=== PATIENT | male | born 1955 | race Caucasian/White ===

== ENCOUNTER 2017-02-12 22:41 | Inpatient (IN) ==
--- NOTE | 2017-02-13 00:07 | Emergency Department Note ---
Disposition Clinical Impression: Weakness, Confusion and disorientation Pneumonia Qualifiers: Pneumonia type: due to unspecified organism Laterality: unspecified laterality Lung location: unspecified part of lung Qualified Code(s): J18.9 - Pneumonia, unspecified organism Disposition: Admitted As Inpatient Condition: Good Time of Disposition: 00:43 General Adult HPI - General Chief complaint: ED Syncope Stated complaint: dizzy/PN Time Seen by Provider: 02/12/17 23:10 Source: patient, family, EMS Limitations: no limitations Nursing Notes Reviewed: Yes Vital Signs Reviewed: Yes - History of Present Illness HPI Narrative: 61-year-old male with a history of previous stroke no report sequela presents from [facility] for weakness and confusion. States earlier today he felt lightheaded and weak on his right side. His [facility] The daughter was concern he also appeared more confused than usual. Believe it may have been from his recent diagnosis of pneumonia. States they been unable to understand his speech for the past several days. He was seen yesterday and diagnosed with pneumonia placed on doxycycline. He has had a cold and cough for over a month sputum production. He has a significant history of cocaine and marijuana use. He is also chronic alcoholic. Concern for stroke, CT of the head was performed that did not reveal any acute intracranial hemorrhage. MRI was recommended for further evaluation. Pain Scale: 9 - Related Data Allergies Allergy/AdvReac Type Severity Reaction Status Date / Time No Known Allergies Allergy Verified 02/12/17 22:42 All systems ED: reviewed and negative except as stated. Review of Systems: As Per HPI Constitutional: Reports: fever. Denies: chills ENT ED: Reports: congestion. Denies: dysphagia Cardiovascular: Denies: chest pain Respiratory: Reports: cough, dyspnea Gastrointestinal: Denies: abdominal pain, nausea, vomiting Genitourinary: Denies: urgency, dysuria Musculoskeletal: Denies: back pain, neck pain Integumentary: Denies: rash, abrasion Neurological: Reports: weakness. Denies: headache Psychiatric: Denies: anxiety, depression Endocrine: Reports: fatigue Past Medical History - Past Medical History Medical history: Reports: cancer, COPD, diabetes, seizures Psychiatric history: Reports: schizophrenia - Social History Smoking Status: Former smoker Alcohol use: Reports: heavy Drug use: Reports: marijuana Physical Exam - General Limitations: no limitations General appearance: alert, in no apparent distress - Head Head exam: atraumatic, normocephalic - Eye Eye exam: Present: normal appearance, PERRL, EOMI. Absent: nystagmus - ENT ENT exam: normal exam, normal oropharynx, mucous membranes moist - Neck Neck exam: Present: normal inspection, full ROM, trachea midline. Absent: tenderness - Chest Chest inspection: Present: normal inspection, symmetric chest wall rise - Respiratory Respiratory exam: Absent: respiratory distress, accessory muscle use - Expanded Respiratory Exam Location: rales: Right - Cardiovascular Cardiovascular exam: Present: regular rate, normal rhythm, normal heart sounds. Absent: systolic murmur, diastolic murmur - Abdominal Exam Abdominal exam: Present: soft, Non-Tender, normal bowel sounds. Absent: tenderness, distention, guarding, rebound, rigidity, Pacheco's sign, Rovsing's sign - Extremities Exam Extremities exam: Present: normal inspection - Expanded Upper Extremity Exam Shoulder exam: Present: normal inspection, full ROM Arm exam: Present: normal inspection, full ROM Elbow exam: Present: normal inspection, full ROM Forearm/Wrist exam: Present: normal inspection, full ROM Hand exam: Present: normal inspection, full ROM Vascular exam: Normal: capillary refill, radial pulse - Back Exam Back exam: Present: normal inspection, full ROM. Absent: tenderness, vertebral tenderness - Neurological Exam Neurological exam: Present: alert - Expanded Neurological Exam Patient oriented to: Present: person, place Speech: Present: fluid speech Cranial nerves: EOM function (II, III, IV, ): Normal, facial sensation (V): Normal, facial palsy (VII): Normal, gag reflex (IX): Normal, spinal accessory function (XI): Normal, tongue deviation (XII): Normal Motor strength - LUE: 5/5 Motor strength - RUE: 5/5 Motor strength - LLE: 4/5 Motor strength - RLE: 5/5 Sensory exam upper extremity: light touch: Normal Sensory exam lower extremity: light touch: Normal - Skin Skin exam: Present: warm, dry, intact, normal color. Absent: rash Course Course Narrative: 61-year-old male presents as a transfer from the [facility] for concern of stroke in confusion. Patient has generalize weakness in this was noticed by her daughter over the past several days. Concern for possible stroke and further evaluation with neurology he was transferred here. On exam patient is awake alert and oriented to person place. He is not have any focal neural deficits his left leg appears low weaker. Sensation is intact. He was also recently diagnosed with pneumonia. Concern that this may be contributing to his increased weakness. He was afebrile here. CT of the head was performed and negative for acute hemorrhage. Will admit to hospital is for further evaluation and MRI imaging. Patient and family are in agreement with plan. Impression is confusion, disorientation, weakness, pneumonia - Consultations Consultation #1: Spoke with on-call hospitalist malini Sosa to admit for confusion, weakness, chronic alcoholism. No further orders at this time. Patient will be admitted for further evaluation with neurology consultation and MRI imaging. Vital Signs Temperature 97.9 F 02/12/17 22:44 Pulse Rate 101 02/12/17 22:44 Respiratory Rate 20 02/12/17 22:44 Blood Pressure 122/76 02/12/17 22:44 O2 Sat by Pulse Oximetry 99 02/12/17 22:44 Temperature 97.8 F 02/13/17 04:03 Pulse Rate 96 02/13/17 04:03 Respiratory Rate 16 02/13/17 04:03 Blood Pressure 106/71 02/13/17 04:03 O2 Sat by Pulse Oximetry 95 02/13/17 04:03 Oxygen Delivery Oxygen Delivery Room Air Medical Decision Making - MDM Narrative Medical decision making narrative: Patient was discussed with my attending physician who agrees with ED management and final disposition. They independently evaluated the patient. Please refer to their attestation to this encounter for additional information. This note was generated by [employer] voice recognition software and as a result grammatical or spelling errors may occur using this program. - Medical Records Medical records reviewed: Yes I reviewed the patient's medical records. - Lab Data Lab results reviewed: Yes I reviewed the patient's lab results. Lab results narrative: Laboratory results performed at the [facility], WBC 8, hemoglobin 10.5, electrolytes are within normal limits, creatinine 1.11, ammonia less than 10 - Radiology Data Radiology results reviewed: Yes I reviewed the patient's radiology results. CT of head performed at [facility], no acute intracranial hemorrhage. MRI-based diffusion imaging recommended. Attestation Statement - Attestation Attestation: I, Mauro Culp MD, personally evaluated this patient and discussed their management with the resident physician. I reviewed the resident's note and agree with the documented findings, medical decision making, and plan of care. 61-year-old [facility]. Patient states he was seen at the [facility] for cough and congestion and was seen again yesterday. He was diagnosed with pneumonia yesterday and started on antibiotics. He reports he went back today because he was not getting any better and felt like he was getting worse. He complains of generalized malaise and body aches. Generalized weakness. Frequent falls and dropping things due to his weakness. Family felt he was more confused than usual today. He lives by himself but does live next door to her daughter. He was seen and worked up at the [facility] urgent care including a CT of the head which was negative. They were concerned about the change in his mental status and felt he needed a neurology consultation and an MRI of the brain. On examination patient is a well-developed well-nourished male in no acute distress. He is alert and oriented 3. There is no cyanosis or diaphoresis. His speech is slow and he is a little slow to respond but speech is not slurred. There is no focal neurological deficits noted. He has good water operator strength bilaterally. Neck is supple and nontender with full range of motion. Breath sounds are resume with some coarse bilateral rales. Heart regular rate and rhythm. Abdomen is soft and nontender with normal bowel sounds. There is 1 + pitting edema of the lower extremities bilaterally. The hospitalist, Dr. Bhatti, was consulted and accepted admission of the patient.
[2017-02-13] MEDS ORDERED: Naloxone 0.4 MG/ML INJ IVP PRN (01:02)
[2017-02-13] MEDS ORDERED: *HR* Morphine 2 MG/ML SYRINGE IVP PRN (01:02)
[2017-02-13] MEDS ORDERED: Ondansetron 4 MG/2 ML VIAL IVP PRN (01:02)
[2017-02-13] MEDS: 0.9 % Sodium Chloride 1,000 ML IVC SCH ×2 (02:11→23:50)
[2017-02-13] MEDS: Thiamine (B-1) 100 MG in D5% in Water 50 ML IVPB SCH ×2 (02:11→08:40)
[2017-02-13] MEDS ORDERED: *HR* Dextrose 50 % in Water (Syg) 50 ML SYRINGE IVP PRN (04:23)
[2017-02-13] MEDS ORDERED: Dextrose Gel 15 GM PO PRN ×2 (04:23)
[2017-02-13] MEDS ORDERED: D5% in Water 1,000 ML IVC PRN (04:23)
[2017-02-13] MEDS ORDERED: Aspirin 325 MG TABLET PO ONE (04:38)
--- NOTE | 2017-02-13 04:49 | Internal Med History&Physical ---
Date of Encounter: 02/13/17 Time of Encounter: 04:30 Assessment and Plan (1) Acute encephalopathy Current visit: Yes Status: Acute Acute encephalopathy with generalized weakness - probably due to poor PO intake , rule out acute CVA - possible underlying dementia - patient currently seems to be back to baseline mental status Continue aspirin, statin CT head done at the [facility] - negative for any acute intracranial abnormality MRI brain - pending Echocardiogram - pending Carotid Doppler - pending Troponin - 0.00 Cardiac telemetry, labs in a.m., monitor closely (2) Alcohol abuse Current visit: Yes Status: Acute History of chronic alcohol abuse - patient states he drinks about 6 pack of beer daily IV thiamine, folic acid, multivitamin tablet, monitor for withdrawal Counseled about cessation (3) DVT prophylaxis Current visit: Yes Status: Acute Heparin subcutaneous Internal Medicine - H&P: HPI Chief complaint: Altered mental status Admitted From: Emergency Dept Plans for Post Hospital Care: Home History of present illness: Mr. Iraheta is a 61 year old male with past medical history of COPD, diabetes, seizures, schizophrenia, CVA, probable dementia, alcohol abuse and cancer. Patient presents to the ED for altered mental status and right-sided weakness. Examined in the room. Patient is awake and alert. Able to answer some questions. Overall a poor historian. No family members at bedside. Most of the history is obtained from ER documentation. Patient was initially taken to the [facility] and was then transferred here. The patient was recently discharged after being treated for pneumonia. He has been on doxycycline as an outpatient. Family has stated that patient's speech has been difficult on the shower the past several days. And his confusion has also been worsening slightly. According to records patient has a history of chronic marijuana use and cocaine use. Also has a history of alcohol abuse. Patient denies chest pain or shortness of breath. Denies palpitations or abdominal pain or vomiting or diarrhea. He is awake and alert and oriented to place and person but not to time. No other acute complaints. No other associated symptoms. No obvious focal neurological deficits. Initial workup in the ED is negative. CT scan of the head without contrast is negative for any acute intracranial abnormality. MRI brain is pending. Patient will be on aspirin and statin. We will also obtain echocardiogram and carotid Doppler. Patient has been excellent about his condition plan of care. He understood and agreed. No unanswered questions. CODE STATUS full code. Past Med Surg Social Fam HX - Past Medical History Medical history: cancer, COPD, diabetes, seizures Psychiatric history: schizophrenia - Past Surgical History Surgical History: other (History of gastric cancer, partial gastrectomy) - Social History Smoking Status: Former smoker Alcohol use: heavy Drug use: marijuana - Family History Mother Living Status: Hx Family Cancer: Yes (Unknown) Father Living Status: Cause of : Cancer Hx Family Cancer: Yes (Unknown) Internal Medicine - H&P: Meds 3 Allergy/AdvReac Type Severity Reaction Status Date / Time No Known Allergies Allergy Verified 02/12/17 22:42 All Systems PM: A 10-system review of systems was performed and is negative for pertinent findings except as documented above in the HPI. - Constitutional Constitutional: fatigue, weakness, no fever(s) - EENT Eyes: no blurry vision - Cardiovascular Cardiovascular ROS IM: no chest pain, no dyspnea, no dyspnea on exertion, no edema, no orthopnea, no palpitations, no syncope - Respiratory Respiratory: no cough, no dyspnea, no dyspnea on exertion, no wheezing, no chest congestion - Gastrointestinal Gastrointestinal: no abdominal pain, no cramping, no diarrhea, no nausea, no vomiting - Genitourinary Genitourinary ROS male: no dysuria - Neurological Neurological ROS: abnormal speech, confusion, frequent falls, numbness, tingling , no dizziness, no focal weakness, no loss of vision - Constitutional Vitals: Temp Pulse Resp BP Pulse Ox 97.8 F 96 16 106/71 95 02/13/17 04:03 02/13/17 04:03 02/13/17 04:03 02/13/17 04:03 02/13/17 04:03 General appearance: Present: cooperative, disheveled, A&O X 2, pleasant, no acute distress, answers questions appropriately Exam: Chronically ill-appearing, generalized weakness. - Head Head exam: Present: atraumatic - Eye Eye exam: Present: EOMI - ENT ENT exam: Present: mucous membranes dry - Respiratory Respiratory exam: Present: CTAB. Absent: rales, rhonchi, wheezes, tachypnea - Cardiovascular Cardiovascular exam: Present: RRR, +S1, +S2 - GI/Abdominal GI/Abdominal exam: Present: soft. Absent: distended, firm, guarding, tenderness - Extremities Exam Extremities exam: Present: radial pulses palpable and symmetrical. Absent: calf tenderness, cyanotic, pedal edema - Neurological Exam Neurological exam: Present: alert, CN II-XII intact, no focal deficits. Absent : facial droop, speech deficit Additional comments: Jose alert. Oriented to place and person but not to time. No focal neurological deficits. Patient is mostly bedbound and wheelchair-bound. No obvious deficits otherwise. Internal Med - H&P Results - Labs CBC & Chem 7: 02/13/17 05:17 02/13/17 05:17
[2017-02-13 05:37] LABS: Basophils % 0.6 %; Eosinophils # 0.1 K/mcL (0.0-0.6); Eosinophils % 1.6 %; Hematocrit 28.5 % (37.5-50.1); Hemoglobin 9.6 g/dL (12.9-16.9); Immature Granulocytes % 0.5 % (0-4); Lymphocytes # 1.7 K/mcL (0.6-4.6); Lymphocytes % 25.7 %; Mean Corpuscular HGB Conc 33.7 g/dL (31.6-35.5); Mean Corpuscular Hemoglobin 30.6 pg (28.0-33.3); Mean Corpuscular Volume 90.8 fL (83.0-100.0); Mean Platelet Volume 8.9 fL (9.4-12.4); Monocytes # 0.7 K/mcL (0.0-1.3); Monocytes % 10.1 %; Neutrophils # 3.9 K/mcL (1.6-8.9); Platelet Count 288 K/mcL (140-400); Red Blood Count 3.14 M/mcL (4.19-5.50); Red Cell Distribution Width 12.8 % (11.5-14.5); Segmented Neutrophils % 61.5 %
[2017-02-13 05:41] LABS: INR 1.2; Prothrombin Time 12.6 Seconds (9.4-12.1)
[2017-02-13 05:54] LABS: BUN/Creatinine Ratio 13 (6-26); Blood Urea Nitrogen 13 mg/dL (8-26); Calcium 8.9 mg/dL (8.6-10.8); Carbon Dioxide 25 mEq/L (19-29); Chloride 103 mEq/L (98-109); Chol/HDL Ratio 3.8 (0-4.9); Cholesterol 121 mg/dL (< 200); Glucose 101 mg/dL (70-99); HDL Cholesterol 32 mg/dL (40-59); LDL Cholesterol,Calculated 71 mg/dL (0-99); Magnesium 1.8 mg/dL (1.6-2.6); Osmolality,Calculated 282 (280-300); Potassium 3.8 mEq/L (3.5-4.5); Sodium 136 mEq/L (136-145); Triglycerides 91 mg/dL (< 150); eGFR For African Americans > 60 (> 60); eGFR For Non-African Americans > 60 (> 60)
[2017-02-13] MEDS: *HR* Heparin 5,000 UNIT/ML VIAL SQ SCH ×2 (06:39→17:10)
[2017-02-13] MEDS: Insulin LISPRO 300 UNITS/3 ML VIAL SQ SCH ×4 (08:38→21:03)
[2017-02-13] MEDS: Folic Acid 1 MG TABLET PO SCH (08:48)
[2017-02-13] MEDS: Aspirin 81 MG TAB.CHEW PO SCH (08:48)
[2017-02-13] MEDS: Multivit/Ca/Min/Fe/FA 1 TAB TABLET PO SCH (08:48)
[2017-02-13 09:14] LABS: Bilirubin,Urine Negative (Negative); Blood,Urine Negative (Negative); Clarity,Urine Clear (Clear); Color,Urine Yellow (Yellow); Glucose,Urine (UA) Normal (Normal); Ketones,Urine 15 mg/dL (Negative); Leukocyte Esterase,Urine Negative (Negative); Nitrite,Urine Negative (Negative); Protein,Urine Negative (Neg-Trace); Specific Gravity,Urine 1.009 (1.010-1.025); Urobilinogen,Urine Normal (Normal)
--- NOTE | 2017-02-13 16:41 | Event Note ---
Date of Encounter: 02/13/17 Time of Encounter: 16:25 1. Metabolic encephalopathy: Transferred from [facility] for weakness and confusion. Mentation appears to be back to baseline, alert and oriented on my exam. Neurologically intact, no deficits apparent[facility] non-acute. History CVA. Need to rule out CVA. Brain MRI, carotid Dopplers, UDS, ammonia level pending. Continue ASA, statin. 2. Alcohol abuse: Drinks 6 pack of beer daily. Monitor for withdrawal with CIWA. IV thiamine, folic acid, multivitamin 3. Pneumonia: With reported pneumonia at [facility]. [facility] records reviewed and no evidence of pneumonia found. No WBC, afebrile. Repeat chest x-ray. 4. Diabetes: Per history. Holding home oral hypoglycemics. SSI. Monitor blood sugar and titrate PRN
[2017-02-13 16:59] LABS: Amphetamine Screen,Urine Negative ng/mL (Cutoff=1000); Barbiturate Screen,Urine Positive ng/mL (Cutoff=200); Benzodiazepines Screen,Urine Negative ng/mL (Cutoff=200); Cannabinoid Screen,Urine Negative ng/mL (Cutoff = 50); Cocaine Screen,Urine Negative ng/mL (Cutoff= 300); Opiate Screen,Urine Negative ng/mL (Cutoff=300); Phencyclidine Screen,Urine Negative ng/mL (Cutoff=25)
[2017-02-13] MEDS: Primidone 50 MG TABLET PO SCH (21:06)
[2017-02-13] MEDS: Valproic Acid 250 MG CAPSULE PO SCH (21:06)
[2017-02-14 04:33] LABS: Hematocrit 28.9 % (37.5-50.1); Hemoglobin 9.9 g/dL (12.9-16.9); Mean Corpuscular HGB Conc 34.3 g/dL (31.6-35.5); Mean Corpuscular Hemoglobin 30.7 pg (28.0-33.3); Mean Corpuscular Volume 89.5 fL (83.0-100.0); Platelet Count 285 K/mcL (140-400); Red Blood Count 3.23 M/mcL (4.19-5.50); Red Cell Distribution Width 12.6 % (11.5-14.5)
[2017-02-14 04:50] LABS: BUN/Creatinine Ratio 9 (6-26); Blood Urea Nitrogen 9 mg/dL (8-26); Carbon Dioxide 24 mEq/L (19-29); Chloride 104 mEq/L (98-109); Glucose 140 mg/dL (70-99); Osmolality,Calculated 281 (280-300); Potassium 4.2 mEq/L (3.5-4.5); Sodium 135 mEq/L (136-145); eGFR For African Americans > 60 (> 60); eGFR For Non-African Americans > 60 (> 60)
[2017-02-14] MEDS: *HR* Heparin 5,000 UNIT/ML VIAL SQ SCH ×2 (05:36→17:20)
[2017-02-14] MEDS: Valproic Acid 250 MG CAPSULE PO SCH ×2 (10:18→20:31)
[2017-02-14] MEDS: Thiamine (B-1) 100 MG in D5% in Water 100 ML IVPB SCH (10:18)
[2017-02-14] MEDS: Insulin LISPRO 300 UNITS/3 ML VIAL SQ SCH ×4 (10:34→20:36)
[2017-02-14] MEDS: Primidone 50 MG TABLET PO SCH ×3 (11:22→20:31)
[2017-02-14] MEDS: Folic Acid 1 MG TABLET PO SCH (11:22)
[2017-02-14] MEDS: Multivit/Ca/Min/Fe/FA 1 TAB TABLET PO SCH (11:23)
[2017-02-14] MEDS: Aspirin 81 MG TAB.CHEW PO SCH (11:23)
--- NOTE | 2017-02-14 11:45 | Internal Med Progress Note ---
Date of Encounter: 02/14/17 Time of Encounter: 11:42 - Assessment and plan (1) Acute encephalopathy Current Visit: Yes Status: Acute Assessment and plan: Today is my first day I am evaluating this patient. When I reviewed chart it appears that patient was confused on arrival. Today patient appears to be alert and oriented 3. Patient has a tongue rolling movements. Patient on service appropriately to questions. Acute encephalopathy getting resolved. The workup for acute encephalopathy is ongoing. Plan: We will complete the workup for acute encephalopathy as ordered by the admitting team. We will follow the recommendations coming from the workup. Depending on that we will involve further specialties. (2) Alcohol abuse Current Visit: Yes Status: Acute Assessment and plan: Patient used to drink 6-8 beers every day previously Patient claims that he does not drink anymore. We will follow [facility] protocol. (3) Weakness Current Visit: Yes Status: Acute Assessment and plan: Patient claims that his weakness has improved a lot. We will keep monitoring. We will get opinion from physical therapy/occupational therapy. (4) Pneumonia Current Visit: Yes Status: Acute Assessment and plan: X-ray chest done this morning. No evidence of pneumonia. Clinically there is no evidence of pneumonia Qualifiers: Pneumonia type: due to unspecified organism Laterality: unspecified laterality Lung location: unspecified part of lung Qualified Code(s): J18.9 - Pneumonia, unspecified organism (5) DVT prophylaxis Current Visit: Yes Status: Acute Assessment and plan: Heparin - Subjective Interval history: Patient seen and examined. Chart reviewed. Patient is comfortably sitting up in a chair. Patient denies any shortness of breath, chest pain, nausea, vomiting, abdominal pain, dizziness or diarrhea. Patient is alert and oriented 3. - Constitutional Vitals: Temp Pulse Resp BP Pulse Ox 98.1 F 74 16 109/75 95 02/14/17 07:51 02/14/17 07:51 02/14/17 07:51 02/14/17 07:51 02/14/17 07:51 General appearance: Present: cooperative, disheveled, A&O X 2, pleasant, no acute distress, answers questions appropriately - Head Head exam: Present: atraumatic, normocephalic Additional comments: Recurrent tongue rolling movements. - Eye Eye exam: Present: PERRL, conjuntiva pink, sclera anicteric Pupils: Present: PERRL - Neck Neck exam general surgery: Present: supple, trachea midline. Absent: lymphadenopathy - Respiratory Respiratory exam: Present: CTAB. Absent: accessory muscle use, rales, rhonchi, wheezes - Cardiovascular Cardiovascular exam: Present: RRR, +S1, +S2. Absent: diastolic murmur, gallop, rubs, systolic murmur - GI/Abdominal GI/Abdominal exam: Present: normal bowel sounds, soft, no peritoneal signs. Absent: distended, tenderness - Extremities Exam Extremities exam: Present: warm, radial pulses palpable and symmetrical. Absent : calf tenderness, cyanotic, pedal edema - Neurological Exam Neurological exam: Present: CN II-XII intact, oriented X3, no focal deficits. Absent: pronater drift, facial droop, speech deficit - Skin Skin exam: Present: dry, intact Internal Medicine: Result - Labs CBC & Chem 7: 02/14/17 04:03 02/14/17 04:03 Labs: Short CBC 02/14/17 Range/Units 04:03 WBC 5.0 (4.3-11.1) K/mcL Hgb 9.9 L (12.9-16.9) g/dL Hct 28.9 L (37.5-50.1) % Plt Count 285 (140-400) K/mcL BMP 02/14/17 04:03 Sodium 135 L Potassium 4.2 Chloride 104 Carbon Dioxide 24 BUN 9 Creatinine 0.97 Glucose 140 H Calcium 9.0 - ABG Interpretation ABG results: PT/INR, D-dimer PT 12.6 Seconds (9.4-12.1) H 02/13/17 05:17 - Impressions Impressions Echocardiogram 02/13/17 04:38 Impressions: LVEF 60-65%. Mild left ventricular diastolic dysfunction. No significant valvular dysfunction. No PFO by color Doppler Recommend elective SHIRAZ to provide improved diagnostic sensitivity for detection of cardiac embolic source Left Ventricular Wall Motion: Rest Echo Findings All wall segments showed normal motion. Findings: Study Quality * Technically adequate exam. Right Ventricle * Normal right ventricular structure and function. Right Atrium * Normal right atrial size. Aortic Valve * Trileaflet aortic valve with normal function. Mitral Valve * Normal mitral valve structure and function. Interatrial Septum * No evidence of PFO by color Doppler. * Lipomatous interatrial septum. Aorta * Normally sized aortic root. Pericardium * The pericardium appears normal. ECG Findings * Normal sinus rhythm. Tricuspid Valve * No tricuspid stenosis. * No tricuspid regurgitation. * Unable to estimate RVSP due to lack of TR jet. IVC * Normal IVC dimensions and inspiratory collapse. Left Atrium * Mildly dilated left atrium. Left Ventricle * LVEF 60-65%. * Mild left ventricular diastolic dysfunction. Chest X-Ray 02/13/17 17:17 IMPRESSION: No acute abnormality detected. D/ / Jonathan Mendoza MD / Jonathan Mendoza MD Interpreting Provider: Jonathan Mendoza MD Consult Discharge Plan - Plan [facility]errals: [facility] [Primary Care Provider] -
[2017-02-14] MEDS: Acetaminophen 325 MG TABLET PO PRN (20:39)
[2017-02-15] MEDS: *HR* Heparin 5,000 UNIT/ML VIAL SQ SCH (06:05)
[2017-02-15] MEDS: Acetaminophen 325 MG TABLET PO PRN (06:14)
[2017-02-15 06:35] LABS: Hematocrit 32.6 % (37.5-50.1); Mean Corpuscular HGB Conc 33.7 g/dL (31.6-35.5); Mean Corpuscular Hemoglobin 30.1 pg (28.0-33.3); Mean Corpuscular Volume 89.3 fL (83.0-100.0); Mean Platelet Volume 8.6 fL (9.4-12.4); Platelet Count 292 K/mcL (140-400); Red Blood Count 3.65 M/mcL (4.19-5.50); Red Cell Distribution Width 12.4 % (11.5-14.5)
[2017-02-15 06:52] LABS: BUN/Creatinine Ratio 7 (6-26); Blood Urea Nitrogen 7 mg/dL (8-26); Calcium 9.2 mg/dL (8.6-10.8); Carbon Dioxide 26 mEq/L (19-29); Chloride 104 mEq/L (98-109); Glucose 139 mg/dL (70-99); Osmolality,Calculated 284 (280-300); Potassium 4.2 mEq/L (3.5-4.5); Sodium 137 mEq/L (136-145); eGFR For African Americans > 60 (> 60); eGFR For Non-African Americans > 60 (> 60)
[2017-02-15] MEDS: Insulin LISPRO 300 UNITS/3 ML VIAL SQ SCH ×2 (08:38→11:28)
[2017-02-15] MEDS: Valproic Acid 250 MG CAPSULE PO SCH (08:44)
[2017-02-15] MEDS: Aspirin 81 MG TAB.CHEW PO SCH (08:44)
[2017-02-15] MEDS: Multivit/Ca/Min/Fe/FA 1 TAB TABLET PO SCH (08:44)
[2017-02-15] MEDS: Primidone 50 MG TABLET PO SCH (08:44)
[2017-02-15] MEDS: Folic Acid 1 MG TABLET PO SCH (08:44)
[2017-02-15] MEDS: Thiamine (B-1) 100 MG in D5% in Water 100 ML IVPB SCH (08:48)
[2017-02-15 11:19] VITALS: BP 118/77
--- NOTE | 2017-02-15 14:25 | Discharge Summary ---
Date of Encounter: 02/15/17 Time of Encounter: 14:22 - Discharge Diagnosis (1) Acute encephalopathy Priority: Primary Comments: . The patient's is alert oriented 3. Her daughter is at the bedside and she confirmed patient is in the back baseline. MRI of brain showed in no acute process, echocardiogram and a colonoscopy Doppler are negative. Chest x-ray is negative. UA is negative for infections patient is stable on discharge (2) DVT prophylaxis Priority: Secondary Status: Acute Comments: Heparin subcutaneous 3 times a day (3) Alcohol abuse Priority: Secondary Status: Chronic Comments: Patient has been drinking alcohol for many years, he stated that he never had alcohol withdrawal symptoms. his last drink was 2 days ago, VS has been stable, he has no shaking sweltering. - Discharge Medications Home Medications: Albuterol Sulfate [Albuterol Inhaler] 2 puff IH Q4HR PRN 02/13/17 [History] Baclofen [Lioresal] 10 mg PO TID PRN 02/13/17 [History] Benzoyl Peroxide [Bpo] 1 appl TP DAILY 02/13/17 [History] Benztropine [Cogentin] 1 mg PO TID 02/13/17 [History] Doxepin HCl 50 mg PO BID 02/13/17 [History] Doxycycline 100 mg PO BID 02/13/17 [History] Escitalopram [Lexapro] 20 mg PO DAILY 02/13/17 [History] GuaiFENesin/Dextromethorphan [Kro Child Mucus Rlf Cough Liq] 10 ml PO TID PRN [History] Metformin HCl [Glucophage] 1,000 mg PO BID 02/13/17 [History] Omeprazole [PriLOSEC] 20 mg PO DAILY 02/13/17 [History] Primidone [Mysoline] 50 mg PO TID 02/13/17 [History] Propranolol [Inderal] 20 mg PO TID 02/13/17 [History] Saxagliptin HCl [Onglyza] 5 mg PO DAILY 02/13/17 [History] Tretinoin 1 appl TP HS 02/13/17 [History] Valproic Acid [Depakene] 500 mg PO BID 02/13/17 [History] fluPHENAZine decanoate [Fluphenazine Decanoate] 2 ml IJ Q2W 02/13/17 [History] glipiZIDE [Glipizide] 10 mg PO BID 02/13/17 [History] Allergies/Adverse Reactions: 3 Allergy/AdvReac Type Severity Reaction Status Date / Time No Known Allergies Allergy Verified 02/12/17 22:42 Procedures/tests Complete & Pending: Procedures Performed prior 72 hours Category Date Time Status MR head/brain wo con [MR] Routine MRI 02/14/17 01:09 Completed EV carotid duplex imaging BI Routine Y 02/13/17 04:38 Completed EV echocardiogram Routine Y 02/13/17 04:38 Completed - Notes to Outpatient Provider MRI brain shows no acute process, echocardiogram unremarkable chest x-ray negative, Carotid Doppler normal Date of admission: 02/13/17 01:02 [facility] care physician: [facility] Consults: 02/13/17 01:29 Consult to Nutrition [CONS] Routine Comment: Consulting Provider: NUTRITION Reason for Dietary Consult: MST Score 02/13/17 06:41 Consult to Physical Therapy [CONS] Routine Comment: Evaluate, develop and implement POC Reason for Consult: Evaluation 02/13/17 06:42 Consult to Occupational Therapy [CONS] Routine Comment: Evaluate, develop and implement POC Reason for Consult: Evaluation Discharging clinician: Eduardo Bailey Anticipated date of discharge: 02/15/17 - Patient Status Disposition: Home, Self-Care Condition: Good Functional capacity at discharge: independent ambulation Overall status at discharge: patient is back to baseline - Discharge Instructions Follow Up With: [facility] [Primary Care Provider] - - Diet and Activity Activity: ambulate only with your walker Diet: diabetic diet Hospital course: Mr. Iraheta is a 61 year old male with past medical history of COPD, diabetes, seizures, schizophrenia, CVA, probable dementia, alcohol abuse and cancer. Patient presents to the ED for altered mental status and right-sided weakness. he was admitted for Acute encephalopathy with generalized weakness - probably due to poor PO intake, rule out acute CVA - possible underlying dementia - patient currently seems to be back to baseline mental status. He has negative MRI unremarkable echocardiogram, normal carotid Doppler, negative for UA and chest x-ray, patient is discharge in stable condition Time spent discussing smoking cessation with patient: more than 10 minutes - Time Spent with Patient Total time spent providing and/or coordinating discharge services: Greater than 30 minutes - Constitutional Vitals: Temp Pulse Resp BP Pulse Ox 97.7 F 71 15 118/77 99 02/15/17 11:19 02/15/17 11:19 02/15/17 11:19 02/15/17 11:19 02/15/17 11:19 CONSTITUTIONAL: patient appears as an age appropriate male in no acute distress. EYES Clear sclerae, bilateral pupils are equal, reactive to light. EMOI. RESPIRATORY: No accessory muscle use, bilateral clear to auscultation, no wheezing, no crackles/rales. CARDIOVASCULAR: Regular heart rate, normal S1 and S2, no murmurs GASTROINTESTINAL: bowel sounds present, soft, no tenderness. MUSCULOSKELETAL: Joints in normal range of motion, no clubbing, no edema, no cyanosis. Bilateral peripheral pulses 2+. NEUROLOGIC: CN II to XII are grossly intact, no focal neurological deficit. General appearance: Present: cooperative, disheveled, A&O X 2, pleasant, no acute distress, answers questions appropriately
--- NOTE | 2017-02-17 10:12 | Electrocardiograph Report ---
[address] [address] Test Date: 2017-02-13 Pat Name: Rex Iraheta Department: 114 Room: [facility] Gender: M Manager Packaging: [id number] Requested By: Gianni Penaloza Order Number: [id number] Reading MD: Conor Askew MD Measurements Intervals [place] Rate: 84 P: 53 CO: 135 QRS: 48 QRSD: 97 T: 32 QT: 370 QTc: 411 Interpretive Statements SINUS RHYTHM LOW QRS VOLTAGE IN EXTREMITY LEADS Electronically Signed On 02-17-2017 10:10:25 EST by Conor Askew MD
== END 2017-02-15 17:00 | disposition home or self-care (01) | DRG 64 ==
LOC: EMEROO 22:41 → 3NENU 22:41 → SUATTDRO 02-13 01:02
PROVIDERS: ADMIT Family Medicine; ATTEND Hospitalist